=== PATIENT | male | born 1980 | race Native Hawaiian/Other Pacific Islander ===

== ENCOUNTER 2019-02-07 07:01 | Observation (INO) | payer OTHER ==
[2019-02-07] VITALS (19 sets, daily range): BP systolic 120–159; BP diastolic 45–109
[~2019-02-07] VITALS: Ht 182.9 cm; Wt 185.0 kg
[~2019-02-07 07:01] MED LIST: ACET-2119 PO; ceFAZolin/D5W- 1GM premix 50 ML IV ONE; cefazolin/dext.iso 2gm/100ml 100 ML IV ONE; famotidine 10mg tablet PO ONE; ringers solution, lacted 1,000 ML IV SCH
[2019-02-07] MEDS ORDERED: ROPIVAcaine 0.5% (5mg/ml) 30ml vial ONE (07:07)
[2019-02-07] MEDS ORDERED: midazolam 2 mg/2 ml injection ONE (07:49)
[2019-02-07] MEDS ORDERED: sevoflurane 250ml liquid IH ONE (07:50)
[2019-02-07] MEDS ORDERED: fentaNYL /PF 50mcg/ml 5ml ampule ONE (07:50)
[2019-02-07] MEDS ORDERED: propofol inj 20 ML IV ONE (07:52)
[2019-02-07] MEDS ORDERED: LIDOcaine 2% (20mg/ml) 5ml vial ONE (07:52)
[2019-02-07] MEDS ORDERED: ringers solution, lacted 1,000 ML IV SCH (08:33)
[2019-02-07] MEDS ORDERED: ondansetron/PF 4mg/2ml inj IV PRN (08:35)
[2019-02-07] MEDS ORDERED: morphine 4 MG/ML inj SYRINge IV PRN ×2 (08:35)
[2019-02-07] MEDS ORDERED: meperidine/PF 25mg/ml syringe IV PRN ×2 (08:35)
[2019-02-07] MEDS ORDERED: proCHLORperazine 10 MG/2 ml inj IV PRN (08:35)
[2019-02-07] MEDS ORDERED: fentaNYL/PF 50MCG/1 ML 2ML syringe ONE (08:40)
--- NOTE | 2019-02-07 09:20 | NUR ---
Received from OR via ORTHO BED WITH RAGHAV , accompanied by Anesthesiologist AQUILINO and report given by Anesthesiolgist. PATIENT WITH 20G PIV IN LEFT HAND RUNNING LR AT 100. PATIENT WITH RENE BANDAGE TO RIGHT KNEE AND IS CDI. VSS. Addendum: 02/07/19 at 0932 by Charles Gonzalez RN, RN Amended: Links added.
[2019-02-07] MEDS ORDERED: ondansetron/PF 4mg/2ml inj ONE (09:40)
[2019-02-07] MEDS ORDERED: dexamethasone sod phosphate 4mg/ml inj. ONE (09:40)
[2019-02-07] MEDS: meperidine/PF 25mg/ml syringe IV PRN ×2 (10:11→10:29)
--- NOTE | 2019-02-07 10:25 | NUR ---
Report received from nevin LADD in recovery
--- NOTE | 2019-02-07 10:40 | NUR ---
ALL CRITERIA FOR TRANSFER TO THE FLOOR HAS BEEN ACHIEVED. VSS. BED LOW, CALL LIGHT AND VS. SET IN PLACE. RN PRESENT TO ACCEPT CARE. PATIENT RESTING COMFORTABLY IN BED. BELONGINGS SENT WITH PATIENT. DRESSINGS CDI. RN PRESENT TO ACCEPT CARE OF PATIENT. PATIENT WITH RIGHT LEG ELEVATED. FOOT OF BED GATCHED WITH HEAD DOWN. VSS. 2 GAURDS PRESENT TO WATCH PATIENT. Addendum: 02/07/19 at 1049 by Charles Gonzalez RN, RN Amended: Links added.
[2019-02-07] MEDS ORDERED: acetaminophen 325mg tablet PO PRN (11:45)
[2019-02-07] MEDS: sodium chloride 0.45% 1,000 ML IV SCH ×2 (11:52→19:22)
--- NOTE | 2019-02-07 13:44 | NUR ---
DM Consult: Pt A1C <7 and not appropriate for ed at this time. Addendum: 02/07/19 at [address] Amended: Links added.
--- NOTE | 2019-02-07 18:18 | NUR ---
Problems reprioritized. Patient report given, questions answered & plan of care reviewed with Bibi RN.
--- NOTE | 2019-02-07 18:20 | NUR ---
Received report from Damian LADD. assumed care of patient.
[2019-02-08] MEDS: HYDROcodone/acetaminophen 5mg/325mg tablet PO PRN ×4 (00:37→09:42)
--- NOTE | 2019-02-08 01:39 | NUR ---
Patient received pain medications at 00:37, stating pain was a 6/10. Treated according to the pain regimen protocol. Administered 1 Taberg 5/325 mg tablet. within an hour patient stated pain was 9/10. administered 1 norco 5/325 mg tablet within an hour of administering the first tablet. will continue to monitor patient.
[2019-02-08 02:00] VITALS: BP 140/58
--- NOTE | 2019-02-08 05:38 | NUR ---
Pt voided once yesterday @ 700mls-1800. bladder scanned patient-600mls. Encouraged patient to utilize the bathroom. patient at the bedside attempting to void and stated that he will be able to urinate, he just needs a little time. will report to day shift to ensure he properly voids.
[2019-02-08 06:00] VITALS: BP 148/90
--- NOTE | 2019-02-08 06:10 | NUR ---
Patient in room ORTHO 4010. I have received report from Bibi and had the opportunity to ask questions and assume patient care.
--- NOTE | 2019-02-08 06:24 | NUR ---
Gave report to Sheryl LADD.
[2019-02-08 09:30] VITALS: BP 131/62
--- NOTE | 2019-02-08 09:45 | NUR ---
Reviewed discharge instructions with pt. Pt is alert, oriented and in a pleasant mood. All of pt's belongings were returned to pt. [facility] will be [facility] to [facility] accompanied by two guards and in the residential transport vehicle.
== END 2019-02-08 09:50 ==
LOC: PAS 07:01 → ORTHO 4S 10:00 → EEVIPCON 10:15
PROVIDERS: ADMIT Orthopaedic Surgery; ATTEND Orthopaedic Surgery
DX: M23.203 Derangement of unspecified medial meniscus due to old tear or injury, right knee (principal); M17.11 Unilateral primary osteoarthritis, right knee
CPT/HCPCS: 29881; 36415; 82948; 83036; 93005; 96374; 96375; 96376; 97110; 97116; 97161; 97530; G0378; J0690; J1100; J2001; J2175; J2250; J2270; J2405; J2704; J3010; A4215; A4618; A6449; A7000; J2795; J7120